=== PATIENT | female | born 1970 | race Caucasian/White ===

== ENCOUNTER 2018-11-22 11:47 | Day surgery (SDC) | payer BC ==
[2018-11-22] MEDS ORDERED: LIDOCAINE 2% (SDV) 5 ML INJ (14:02)
[2018-11-22] MEDS ORDERED: PROPOFOL 20 ML ×2 (14:02→14:29)
[2018-11-22] MEDS ORDERED: ONDANSETRON 4 MG INJ (14:32)
== END 2018-11-22 15:08 | disposition home or self-care (01) ==
LOC: GIL 11:47
DX: K29.50 Unspecified chronic gastritis without bleeding (principal); K44.9 Diaphragmatic hernia without obstruction or gangrene; K20.9 Esophagitis, unspecified
CPT/HCPCS: 43239; 84703; 88305; 88312; 88313